=== PATIENT | male | born 1955 | race Caucasian/White ===

== ENCOUNTER 2025-11-08 11:20 | Outpatient (RCR) | payer MEDICARE, SELFPAY ==
[2025-11-08 11:46] VITALS: BP 136/77
[2025-11-08] MEDS: INJECTAFER 265 MG IV (11:57)
[2025-11-08 12:43] VITALS: BP 142/76
== END 2025-11-10 08:55 | disposition home or self-care (01) ==
LOC: OID 11:20
PROVIDERS: ATTENDING PHYSICIAN Psychiatry & Neurology Neurology; FAMILY PHYSICIAN Internal Medicine
DX: R79.0 Abnormal level of blood mineral (principal); G25.81 Restless legs syndrome
CPT/HCPCS: 96365; J1439